=== PATIENT | male | born 1950 | race Caucasian/White ===

== ENCOUNTER 2019-08-27 17:44 | Observation (INO) ==
[2019-08-27 18:51] LABS: ABS Eosinophils 0.1 10^3/ul (0-0.6); ABS Lymphocytes 0.3 10^3/ul (1.0-4.8); ABS Monocytes 0.9 10^3/ul (0-0.8); Eosinophil % 1.6 %; Hematocrit 33 % (42-52); Hemoglobin 11.4 g/dL (14.0-18.0); Lymphocyte % 3.7 %; Mean Corpuscular HGB Conc 35 g/dL (31-36); Mean Corpuscular Hemoglobin 32 pg (27-31); Mean Corpuscular Volume 92 fL (80-94); Mean Platelet Volume 9.9 fL (7.4-10.4); Platelet Count 139 10^3/uL (150-450); Red Blood Count 3.55 10^6 /uL (4.18-5.48); Red Cell Distribution Width 19 % (10-15); White Blood Count 6.8 10^3/uL (3.5-10.8)
[2019-08-27 19:14] LABS: Albumin 4.5 g/dL (3.2-5.2); Albumin/Globulin Ratio 1.3 (1-3); BUN/Creatinine Ratio 14.8 (8-20); Calcium 10.3 mg/dL (8.6-10.3); EGFR Non-African American 17.4 (>60); Globulin 3.6 g/dL (2-4); Total Bilirubin 0.8 mg/dL (0.2-1.0); Total Protein 8.1 g/dL (6.4-8.9)
[2019-08-27 19:16] LABS: Potassium 5.7 mmol/L (3.5-5.0)
[2019-08-27] MEDS ORDERED: NS 0.9% 1000 ml BAG 1,000 ML IV ONE (20:08)
[2019-08-27 21:42] LABS: Urine Appearance Clear; Urine Bilirubin Negative (Negative); Urine Blood Negative (Negative); Urine Color Yellow; Urine Glucose Negative (Negative); Urine Ketones Negative (Negative); Urine Nitrite Negative (Negative); Urine Protein Negative (Negative); Urine Specific Gravity 1.009 (1.010-1.030); Urine Urobilinogen Negative (Negative)
[2019-08-28] LABS: Magnesium 2.7 mg/dL (1.9-2.7)
[2019-08-28 00:05] LABS: Digoxin 2.8 ng/ml (0.8-2.0)
[2019-08-28 00:43] LABS: BUN/Creatinine Ratio 15.2 (8-20); Calcium 9.7 mg/dL (8.6-10.3); EGFR African American 21.6 (>60); EGFR Non-African American 17.9 (>60); Potassium 4.9 mmol/L (3.5-5.0)
[2019-08-28 00:45] LABS: Troponin I 0.01 ng/mL (<0.03)
[2019-08-28] MEDS ORDERED: fentaNYL PATCH 100 MCG/HR 1 PATCH TRANSDERM SCH (01:00)
[2019-08-28] MEDS ORDERED: NS 0.9% 1000 ml BAG 1,000 ML IV SCH ×2 (01:15→10:30)
[2019-08-28 01:36] LABS: Urine Creatinine Concentration 56.52 mg/dL
[2019-08-28] MEDS: Pentoxifylline CR 400 mg TAB 400 MG PO SCH ×3 (03:00→20:18)
[2019-08-28] MEDS: fentaNYL Patch Check Q Shift NOTE FOLLOW UP SCH ×2 (06:51→19:29)
[2019-08-28 07:26] LABS: ABS Eosinophils 0.1 10^3/ul (0-0.6); ABS Lymphocytes 0.1 10^3/ul (1.0-4.8); ABS Monocytes 0.6 10^3/ul (0-0.8); Eosinophil % 2.8 %; Hematocrit 27 % (42-52); Hemoglobin 9.2 g/dL (14.0-18.0); Lymphocyte % 2.3 %; Mean Corpuscular HGB Conc 34 g/dL (31-36); Mean Corpuscular Hemoglobin 32 pg (27-31); Mean Corpuscular Volume 92 fL (80-94); Mean Platelet Volume 9.8 fL (7.4-10.4); Platelet Count 105 10^3/uL (150-450); Red Blood Count 2.93 10^6 /uL (4.18-5.48); Red Cell Distribution Width 19 % (10-15); White Blood Count 4.8 10^3/uL (3.5-10.8)
[2019-08-28 07:44] LABS: BUN/Creatinine Ratio 15.9 (8-20); EGFR Non-African American 20.7 (>60); Potassium 4.4 mmol/L (3.5-5.0)
[2019-08-28] MEDS ORDERED: fentaNYL PATCH 75 MCG/HR 1 PATCH TRANSDERM SCH (08:00)
[2019-08-28] MEDS ORDERED: Lenalidomide 10 mg CAP (NF) PO SCH (09:00)
[2019-08-28] MEDS: CMCS:Alfuzosin ER 10 mg TAB.ER (NF) 10 MG TAB.ER PO SCH (10:14)
[2019-08-28] MEDS: Cyanocobalamin INJ 1,000 MCG/ML VIAL 1 ML VIAL IM ONE ×2 (10:22→10:23)
[2019-08-28 11:43] LABS: Uric Acid 10.8 mg/dL (4.4-7.6)
[2019-08-29 07:10] LABS: ABS Eosinophils 0.1 10^3/ul (0-0.6); ABS Lymphocytes 0.1 10^3/ul (1.0-4.8); ABS Monocytes 0.4 10^3/ul (0-0.8); Eosinophil % 4.3 %; Hematocrit 24 % (42-52); Hemoglobin 8.5 g/dL (14.0-18.0); Lymphocyte % 3.1 %; Mean Corpuscular HGB Conc 35 g/dL (31-36); Mean Corpuscular Hemoglobin 32 pg (27-31); Mean Corpuscular Volume 92 fL (80-94); Nucleated Red Blood Cells % 0.2; Red Blood Count 2.63 10^6 /uL (4.18-5.48); Red Cell Distribution Width 19 % (10-15); White Blood Count 2.9 10^3/uL (3.5-10.8)
[2019-08-29 07:20] LABS: BUN/Creatinine Ratio 16.6 (8-20); Calcium 8.5 mg/dL (8.6-10.3); EGFR African American 34.5 (>60); EGFR Non-African American 28.5 (>60); Potassium 4.2 mmol/L (3.5-5.0)
[2019-08-29] MEDS: fentaNYL Patch Check Q Shift NOTE FOLLOW UP SCH (07:27)
[2019-08-29] MEDS: CMCS:Alfuzosin ER 10 mg TAB.ER (NF) 10 MG TAB.ER PO SCH (08:49)
[2019-08-29] MEDS: Pentoxifylline CR 400 mg TAB 400 MG PO SCH (08:49)
[2019-08-29 09:07] LABS: Mean Platelet Volume 9.2 fL (7.4-10.4); Platelet Count 113 10^3/uL (150-450)
[2019-08-29 13:43] LABS: Urine Potassium Concentration 43.1 mmol/L
[2019-08-29 18:35] VITALS: BP 94/47
[2019-08-31 13:06] LABS: Urine Kappa Total Light Chain 1.18 mg/dL (<0.9000); Urine Kappa/Lambda Light Chain >1.69
[2019-08-31 17:06] LABS: Kappa Free Light Chain 2.15 mg/dL
[2019-09-01 10:31] LABS: Albumin 2.9 g/dL (3.4-4.7); Albumin/Globulin Ratio 0.92; Gamma Globulin 1.1 g/dL (0.6-1.6); Total Protein(PEP) 6.1 g/dL (6.3 - 7.9)
[2019-09-02 13:27] LABS: Albumin 53 %; Albumin/Globulin Ratio 1.13 %; Gamma Globulin 7 %; Total Protein(PEP) Urine 10 mg/dL
== END 2019-08-29 16:55 | disposition home or self-care (01) ==
LOC: MEDTELE 17:44 → ED 17:44 → MEDTELE 08-28 01:32
PROVIDERS: ADMIT Internal Medicine; ATTEND Internal Medicine

== ENCOUNTER 2021-07-12 17:46 | Inpatient (IN) ==
[2021-07-12 19:30] LABS: ABS Basophils 0.1 10^3/ul (0-0.2); ABS Lymphocytes 0.1 10^3/ul (1.0-4.8); ABS Monocytes 0.4 10^3/ul (0-0.8); ABS Neutrophils 15.9 10^3/ul (1.5-7.7); Eosinophil % 0.1 %; Hematocrit 28 % (42-52); Hemoglobin 9.3 g/dL (14.0-18.0); Lymphocyte % 0.4 %; Mean Corpuscular HGB Conc 33 g/dL (31-36); Mean Corpuscular Hemoglobin 31 pg (27-31); Mean Corpuscular Volume 95 fL (80-94); Mean Platelet Volume 7.2 fL (7.4-10.4); Nucleated Red Blood Cells % 0.2; Platelet Count 232 10^3/uL (150-450); Red Blood Count 2.97 10^6 /uL (4.18-5.48); Red Cell Distribution Width 18 % (10-15); White Blood Count 16.4 10^3/uL (3.5-10.8)
[2021-07-12 19:53] LABS: ALT 7 U/L (7-52); AST 19 U/L (13-39); Albumin 3.9 g/dL (3.2-5.2); Albumin/Globulin Ratio 1.1 (1-3); Alkaline Phosphatase 89 U/L (35-149); Anion Gap 10 mmol/L (2-11); Blood Urea Nitrogen 39 mg/dL (6-24); CO2 Carbon Dioxide 30 mmol/L (22-32); Calcium 12.5 mg/dL (8.6-10.3); Chloride 98 mmol/L (101-111); Creatine Kinase 38 U/L (10-223); Digoxin 0.7 ng/ml (0.8-2.0); Globulin 3.6 g/dL (2-4); Glucose 90 mg/dL (70-100); High Sens Troponin Baseline 31 pg/mL (<20); Sodium 138 mmol/L (135-145); Total Protein 7.5 g/dL (6.4-8.9); eGFR CKD-EPI 31.4 (>60)
[2021-07-12] MEDS ORDERED: NS 0.9% 1000 ml BAG 1,000 ML IV SCH (20:15)
[2021-07-12 20:43] LABS: Urine Appearance Cloudy; Urine Bilirubin Negative (Negative); Urine Blood Negative (Negative); Urine Color Yellow; Urine Glucose Negative (Negative); Urine Ketones Negative (Negative); Urine Nitrite Negative (Negative); Urine Protein Negative (Negative); Urine Urobilinogen Negative (Negative)
[2021-07-12 20:46] LABS: Urine Bacteria 1+ (Absent); Urine Red Blood Cell 1+(3-5/hpf) (Absent); Urine White Blood Cell 1+(6-10/hpf) (Absent)
[2021-07-12] MEDS ORDERED: Morphine 4 MG/ML VIAL (1 ml) IV ONE (20:53)
[2021-07-12 21:01] LABS: High Sensitivity Troponin 1 Hr 38 pg/mL (<20)
[2021-07-12 23:25] LABS: C Reactive Protein < 1.00 mg/L (<8.01)
[2021-07-12] MEDS ORDERED: Acetaminophen IV 1 GM/100ML 100 ML IV PRN (23:34)
[2021-07-12] MEDS ORDERED: Cefepime ADVAN 1 GM in NS 0.9% 50 ML 50 ML IVPB SCH (23:45)
[2021-07-13] MEDS ORDERED: Cefepime 1 GM in Dextrose 1 GM/50 ML BAG IV ONE
[2021-07-13] MEDS: fentaNYL PATCH 75 MCG/HR 1 PATCH TRANSDERM SCH (03:33)
[2021-07-13 06:18] LABS: ABS Lymphocytes 0.1 10^3/ul (1.0-4.8); ABS Monocytes 0.6 10^3/ul (0-0.8); ABS Neutrophils 15.5 10^3/ul (1.5-7.7); Hematocrit 24 % (42-52); Hemoglobin 7.8 g/dL (14.0-18.0); Lymphocyte % 0.8 %; Mean Corpuscular HGB Conc 33 g/dL (31-36); Mean Corpuscular Hemoglobin 31 pg (27-31); Mean Corpuscular Volume 95 fL (80-94); Mean Platelet Volume 7.3 fL (7.4-10.4); Nucleated Red Blood Cells % 0.1; Platelet Count 200 10^3/uL (150-450); Red Cell Distribution Width 18 % (10-15); White Blood Count 16.3 10^3/uL (3.5-10.8)
[2021-07-13 06:54] LABS: Albumin 3.4 g/dL (3.2-5.2); Albumin/Globulin Ratio 1.1 (1-3); C Reactive Protein 165.75 mg/L (<8.01); Calcium 11.7 mg/dL (8.6-10.3); Globulin 3.2 g/dL (2-4); Magnesium 2.7 mg/dL (1.9-2.7); Potassium 3.7 mmol/L (3.5-5.0); Total Bilirubin 0.6 mg/dL (0.2-1.0); Total Protein 6.6 g/dL (6.4-8.9); eGFR CKD-EPI 36.3 (>60)
[2021-07-13] MEDS: fentaNYL Patch Check Q Shift NOTE FOLLOW UP SCH ×2 (07:18→18:55)
[2021-07-13 08:20] LABS: Ferritin 94.5 ng/mL (24-336)
[2021-07-13] MEDS ORDERED: NS 0.9% 1000 ml BAG 1,000 ML IV SCH ×2 (11:00)
[2021-07-13] MEDS ORDERED: Calcitonin (Salmon) INJ 200 UNITS/ML 2 ML VIAL (400 units) IM ONE (11:04)
[2021-07-13 14:52] LABS: Calcium 10.8 mg/dL (8.6-10.3); Potassium 3.7 mmol/L (3.5-5.0); eGFR CKD-EPI 45.4 (>60)
[2021-07-13] MEDS ORDERED: Benzocaine (DENTAL) 10% TOP.GEL TOPICAL PRN (17:18)
[2021-07-13] MEDS ORDERED: Lactated Ringers 1000 ml BAG 1,000 ML IV SCH (18:00)
[2021-07-13 18:48] LABS: ABS Lymphocytes 0.1 10^3/ul (1.0-4.8); ABS Monocytes 0.1 10^3/ul (0-0.8); ABS Neutrophils 10.9 10^3/ul (1.5-7.7); Eosinophil % 0.1 %; Hematocrit 22 % (42-52); Hemoglobin 7.2 g/dL (14.0-18.0); Lymphocyte % 1.1 %; Mean Corpuscular HGB Conc 33 g/dL (31-36); Mean Corpuscular Hemoglobin 32 pg (27-31); Mean Corpuscular Volume 96 fL (80-94); Mean Platelet Volume 7.1 fL (7.4-10.4); Nucleated Red Blood Cells % 0.1; Platelet Count 172 10^3/uL (150-450); Red Blood Count 2.28 10^6 /uL (4.18-5.48); Red Cell Distribution Width 19 % (10-15); White Blood Count 11.1 10^3/uL (3.5-10.8)
[2021-07-13] MEDS: Heparin 5000 UNITS/ML 1 mL VIAL SUBCUT SCH (20:24)
[2021-07-14] MEDS: Cefepime 1 GM in Dextrose 1 GM/50 ML BAG IV SCH (00:59)
[2021-07-14 05:48] LABS: ABS Lymphocytes 0.2 10^3/ul (1.0-4.8); ABS Monocytes 0.4 10^3/ul (0-0.8); Eosinophil % 0.5 %; Hematocrit 21 % (42-52); Lymphocyte % 2.3 %; Mean Corpuscular HGB Conc 34 g/dL (31-36); Mean Corpuscular Hemoglobin 32 pg (27-31); Mean Corpuscular Volume 95 fL (80-94); Mean Platelet Volume 7.2 fL (7.4-10.4); Platelet Count 174 10^3/uL (150-450); Red Blood Count 2.15 10^6 /uL (4.18-5.48); Red Cell Distribution Width 18 % (10-15); White Blood Count 7.6 10^3/uL (3.5-10.8)
[2021-07-14 06:29] LABS: ALT 6 U/L (7-52); AST 14 U/L (13-39); Alkaline Phosphatase 60 U/L (35-149); Anion Gap 7 mmol/L (2-11); Blood Urea Nitrogen 29 mg/dL (6-24); CO2 Carbon Dioxide 28 mmol/L (22-32); Calcium 10.5 mg/dL (8.6-10.3); Chloride 104 mmol/L (101-111); Globulin 2.9 g/dL (2-4); Glucose 90 mg/dL (70-100); Magnesium 2.3 mg/dL (1.9-2.7); Potassium 3.8 mmol/L (3.5-5.0); Sodium 139 mmol/L (135-145); Total Protein 5.9 g/dL (6.4-8.9); eGFR CKD-EPI 58.7 (>60)
[2021-07-14] MEDS: fentaNYL Patch Check Q Shift NOTE FOLLOW UP SCH ×2 (06:40→19:14)
[2021-07-14] MEDS: Heparin 5000 UNITS/ML 1 mL VIAL SUBCUT SCH (10:11)
[2021-07-14 10:19] LABS: C Reactive Protein 192.74 mg/L (<8.01)
[2021-07-14 13:37] LABS: Kappa Free Light Chain 1.26 mg/dL; Lambda Free Light Chain, S <0.1500 mg/dL
[2021-07-14 17:03] LABS: LDH 160 U/L (140-271)
[2021-07-14 18:51] LABS: Corrected Retic Count 1.3 % (0.5-1.5); Hematocrit for Retic CNT 21 % (42-52); Immature Retic Fraction 0.66; RBC Retic Count 2.22 10^6/uL (4.18-5.48)
[2021-07-14 19:20] LABS: PSA Screening Total < 0.008 ng/mL (0-4.000)
[2021-07-14] MEDS ORDERED: Gadoteridol (CONTRAST) 279.3 MG/ML 10 ML IV ONE (20:34)
[2021-07-14 23:28] LABS: Albumin 2.5 g/dL (3.4-4.7); Gamma Globulin 1.2 g/dL (0.6-1.6)
[2021-07-15] MEDS: Cefepime 1 GM in Dextrose 1 GM/50 ML BAG IV SCH (00:49)
[2021-07-15 05:09] LABS: ABS Eosinophils 0.1 10^3/ul (0-0.6); ABS Lymphocytes 0.1 10^3/ul (1.0-4.8); ABS Monocytes 0.3 10^3/ul (0-0.8); ABS Neutrophils 4.4 10^3/ul (1.5-7.7); Eosinophil % 1.9 %; Hematocrit 21 % (42-52); Lymphocyte % 2.5 %; Mean Corpuscular HGB Conc 33 g/dL (31-36); Mean Corpuscular Hemoglobin 31 pg (27-31); Mean Corpuscular Volume 95 fL (80-94); Mean Platelet Volume 6.9 fL (7.4-10.4); Nucleated Red Blood Cells % 0.4; Platelet Count 184 10^3/uL (150-450); Red Blood Count 2.22 10^6 /uL (4.18-5.48); Red Cell Distribution Width 18 % (10-15); White Blood Count 4.9 10^3/uL (3.5-10.8)
[2021-07-15 05:45] LABS: Potassium 3.6 mmol/L (3.5-5.0); eGFR CKD-EPI 59.3 (>60)
[2021-07-15] MEDS: fentaNYL Patch Check Q Shift NOTE FOLLOW UP SCH ×2 (07:22→19:02)
[2021-07-15] MEDS: NS 0.9% 1000 ml BAG 1,000 ML IV SCH (16:59)
[2021-07-15] MEDS: Dexamethasone IV 4 MG/ML VIAL 1 ml VIAL IV SLOW PU SCH (17:32)
[2021-07-15] MEDS: Dexamethasone IV 40 MG in NS 0.9% 50 ML 50 ML IVPB SCH (19:56)
[2021-07-15] MEDS: Heparin 5000 UNITS/ML 1 mL VIAL SUBCUT SCH (21:24)
[2021-07-16] MEDS: cefTRIAXone 1 gm/50 mL D5W 1 GM/50 ML BAG IV SCH ×2 (00:58→23:23)
[2021-07-16] MEDS: NS 0.9% 1000 ml BAG 1,000 ML IV SCH ×3 (02:17→19:01)
[2021-07-16] MEDS: fentaNYL PATCH 75 MCG/HR 1 PATCH TRANSDERM SCH (03:20)
[2021-07-16] MEDS: Heparin 5000 UNITS/ML 1 mL VIAL SUBCUT SCH ×3 (05:36→20:01)
[2021-07-16 06:26] LABS: Hematocrit 21 % (42-52); Hemoglobin 7.1 g/dL (14.0-18.0); Mean Corpuscular HGB Conc 34 g/dL (31-36); Mean Corpuscular Hemoglobin 32 pg (27-31); Mean Corpuscular Volume 96 fL (80-94); Mean Platelet Volume 7.7 fL (7.4-10.4); Platelet Count 207 10^3/uL (150-450); Red Blood Count 2.19 10^6 /uL (4.18-5.48); Red Cell Distribution Width 18 % (10-15); White Blood Count 6.2 10^3/uL (3.5-10.8)
[2021-07-16 06:27] LABS: ABS Lymphocytes 0.1 10^3/ul (1.0-4.8); ABS Monocytes 0.2 10^3/ul (0-0.8); ABS Neutrophils 5.9 10^3/ul (1.5-7.7); Eosinophil % 0.3 %; Lymphocyte % 1.9 %; Nucleated Red Blood Cells % 0.1
[2021-07-16 06:59] LABS: Calcium 11.5 mg/dL (8.6-10.3); eGFR CKD-EPI 69.5 (>60)
[2021-07-16] MEDS: fentaNYL Patch Check Q Shift NOTE FOLLOW UP SCH ×2 (07:00→18:54)
[2021-07-16] MEDS ORDERED: cefTRIAXone 1 gm/50 mL D5W 1 GM/50 ML BAG IV SCH (09:00)
[2021-07-16] MEDS: Dexamethasone IV 4 MG/ML VIAL 1 ml VIAL IV SLOW PU SCH (10:00)
[2021-07-16] MEDS: Dexamethasone IV 40 MG in NS 0.9% 50 ML 50 ML IVPB SCH (10:10)
[2021-07-16] MEDS ORDERED: Calcitonin (Salmon) INJ 200 UNITS/ML 2 ML VIAL (400 units) IM ONE (11:11)
[2021-07-17 04:54] LABS: ABS Lymphocytes 0.1 10^3/ul (1.0-4.8); ABS Monocytes 0.4 10^3/ul (0-0.8); ABS Neutrophils 10.2 10^3/ul (1.5-7.7); Hematocrit 21 % (42-52); Hemoglobin 6.9 g/dL (14.0-18.0); Lymphocyte % 1.2 %; Mean Corpuscular HGB Conc 34 g/dL (31-36); Mean Corpuscular Hemoglobin 32 pg (27-31); Mean Corpuscular Volume 96 fL (80-94); Mean Platelet Volume 7.8 fL (7.4-10.4); Nucleated Red Blood Cells % 0.1; Platelet Count 203 10^3/uL (150-450); Red Blood Count 2.15 10^6 /uL (4.18-5.48); Red Cell Distribution Width 18 % (10-15); White Blood Count 10.8 10^3/uL (3.5-10.8)
[2021-07-17 05:37] LABS: Calcium 9.7 mg/dL (8.6-10.3); Potassium 3.7 mmol/L (3.5-5.0); eGFR CKD-EPI 90.1 (>60)
[2021-07-17] MEDS: Heparin 5000 UNITS/ML 1 mL VIAL SUBCUT SCH ×3 (05:45→21:37)
[2021-07-17] MEDS ORDERED: Lactated Ringers 1000 ml BAG 1,000 ML IV ONE (06:58)
[2021-07-17] MEDS: fentaNYL Patch Check Q Shift NOTE FOLLOW UP SCH ×2 (07:14→18:52)
[2021-07-17] MEDS: Dexamethasone IV 40 MG in NS 0.9% 50 ML 50 ML IVPB SCH (07:40)
[2021-07-17] MEDS ORDERED: Pneumococcal Vac 23-Polyvalent IM ONE (09:00)
[2021-07-17] MEDS ORDERED: Potassium Chloride LIQUID 20 MEQ/15 ML LIQUID PO ONE (09:00)
[2021-07-17] MEDS ORDERED: Potassium Chloride LIQUID 20 MEQ/15 ML LIQUID PO SCH (09:00)
[2021-07-17 14:07] LABS: Immunoglobulin A 2 mg/dL (61 - 356); Immunoglobulin G 1490 mg/dL (767 - 1590); Immunoglobulin M <5 mg/dL (37 - 286)
[2021-07-17 19:55] LABS: Hematocrit 23 % (42-52); Hemoglobin 7.7 g/dL (14.0-18.0); Mean Corpuscular HGB Conc 33 g/dL (31-36); Mean Corpuscular Hemoglobin 32 pg (27-31); Mean Corpuscular Volume 95 fL (80-94); Mean Platelet Volume 7.5 fL (7.4-10.4); Platelet Count 201 10^3/uL (150-450); Red Blood Count 2.44 10^6 /uL (4.18-5.48); Red Cell Distribution Width 18 % (10-15); White Blood Count 10.3 10^3/uL (3.5-10.8)
[2021-07-18] MEDS: cefTRIAXone 1 gm/50 mL D5W 1 GM/50 ML BAG IV SCH (00:07)
[2021-07-18] MEDS: Heparin 5000 UNITS/ML 1 mL VIAL SUBCUT SCH ×2 (06:02→14:28)
[2021-07-18 06:28] LABS: ABS Lymphocytes 0.2 10^3/ul (1.0-4.8); ABS Monocytes 0.4 10^3/ul (0-0.8); ABS Neutrophils 7.6 10^3/ul (1.5-7.7); Hematocrit 23 % (42-52); Hemoglobin 7.7 g/dL (14.0-18.0); Mean Corpuscular HGB Conc 34 g/dL (31-36); Mean Corpuscular Hemoglobin 32 pg (27-31); Mean Corpuscular Volume 93 fL (80-94); Mean Platelet Volume 7.4 fL (7.4-10.4); Nucleated Red Blood Cells % 0.1; Platelet Count 193 10^3/uL (150-450); Red Blood Count 2.43 10^6 /uL (4.18-5.48); Red Cell Distribution Width 18 % (10-15); White Blood Count 8.2 10^3/uL (3.5-10.8)
[2021-07-18 07:02] LABS: Calcium 9.3 mg/dL (8.6-10.3); Potassium 3.6 mmol/L (3.5-5.0)
[2021-07-18] MEDS ORDERED: Dexamethasone IV 4 MG/ML 5 ML VIAL (20 MG) ONE (08:20)
[2021-07-18] MEDS: Dexamethasone IV 40 MG in NS 0.9% 50 ML 50 ML IVPB SCH (08:28)
[2021-07-18] MEDS: fentaNYL Patch Check Q Shift NOTE FOLLOW UP SCH ×2 (08:47→19:20)
[2021-07-18 14:49] LABS: Magnesium 1.9 mg/dL (1.9-2.7)
[2021-07-18] MEDS: Enoxaparin 40 MG/0.4 ML SYR SUBCUT SCH (20:53)
[2021-07-19] MEDS: fentaNYL PATCH 75 MCG/HR 1 PATCH TRANSDERM SCH (03:15)
[2021-07-19 05:49] LABS: ABS Lymphocytes 0.1 10^3/ul (1.0-4.8); ABS Monocytes 0.4 10^3/ul (0-0.8); ABS Neutrophils 5.5 10^3/ul (1.5-7.7); Hematocrit 24 % (42-52); Hemoglobin 8.1 g/dL (14.0-18.0); Lymphocyte % 2.2 %; Mean Corpuscular HGB Conc 34 g/dL (31-36); Mean Corpuscular Hemoglobin 32 pg (27-31); Mean Corpuscular Volume 94 fL (80-94); Mean Platelet Volume 8.4 fL (7.4-10.4); Nucleated Red Blood Cells % 0.4; Platelet Count 203 10^3/uL (150-450); Red Blood Count 2.55 10^6 /uL (4.18-5.48); Red Cell Distribution Width 18 % (10-15); White Blood Count 6.1 10^3/uL (3.5-10.8)
[2021-07-19 05:57] LABS: Calcium 9.2 mg/dL (8.6-10.3); Potassium 3.7 mmol/L (3.5-5.0)
[2021-07-19] MEDS: fentaNYL Patch Check Q Shift NOTE FOLLOW UP SCH ×2 (07:14→19:30)
[2021-07-19] MEDS: Polyethylene Glycol 3350 17 GM PACKET PO SCH (10:12)
[2021-07-19] MEDS: Ferric Gluconate IV 125 MG in NS 0.9% 100 ml BAG 100 ML IVPB SCH (10:12)
[2021-07-19] MEDS: Enoxaparin 40 MG/0.4 ML SYR SUBCUT SCH (20:40)
[2021-07-19] MEDS: Senna TAB 8.6 mg TAB PO SCH (20:43)
[2021-07-20] MEDS ORDERED: fentaNYL PATCH 75 MCG/HR 1 PATCH TRANSDERM SCH (05:00)
[2021-07-20 06:49] LABS: Hematocrit 25 % (42-52); Hemoglobin 8.4 g/dL (14.0-18.0); Mean Corpuscular HGB Conc 34 g/dL (31-36); Mean Corpuscular Hemoglobin 32 pg (27-31); Mean Corpuscular Volume 94 fL (80-94); Mean Platelet Volume 7.7 fL (7.4-10.4); Platelet Count 209 10^3/uL (150-450); Red Blood Count 2.61 10^6 /uL (4.18-5.48); Red Cell Distribution Width 18 % (10-15); White Blood Count 4.3 10^3/uL (3.5-10.8)
[2021-07-20] MEDS: fentaNYL Patch Check Q Shift NOTE FOLLOW UP SCH ×2 (07:03→19:00)
[2021-07-20 07:12] LABS: Calcium 9.1 mg/dL (8.6-10.3); Magnesium 1.6 mg/dL (1.9-2.7); Phosphorus 3.2 mg/dL (2.5-5.0); Potassium 4.1 mmol/L (3.5-5.0); eGFR CKD-EPI 95.3 (>60)
[2021-07-20] MEDS ORDERED: Polyethylene Glycol 3350 17 GM PACKET PO SCH (08:00)
[2021-07-20] MEDS: Polyethylene Glycol 3350 17 GM PACKET PO SCH ×2 (08:28→22:55)
[2021-07-20] MEDS ORDERED: fentaNYL PATCH 100 MCG/HR 1 PATCH TRANSDERM SCH (09:00)
[2021-07-20] MEDS ORDERED: Magnesium Sulfate 2 gm BAG 2 GM/50 ML BAG IV ONE (09:30)
[2021-07-20] MEDS ORDERED: Magnesium Sulfate 1 GM IV 1 GM/100 ML BAG IV ONE (11:00)
[2021-07-20] MEDS: Ferric Gluconate IV 125 MG in NS 0.9% 100 ml BAG 100 ML IVPB SCH (16:58)
[2021-07-20] MEDS: Enoxaparin 40 MG/0.4 ML SYR SUBCUT SCH ×2 (21:17→21:24)
[2021-07-20] MEDS: Senna TAB 8.6 mg TAB PO SCH (21:19)
[2021-07-21 07:15] LABS: Calcium 9.8 mg/dL (8.6-10.3); Potassium 4.4 mmol/L (3.5-5.0); eGFR CKD-EPI 90.1 (>60)
[2021-07-21] MEDS: fentaNYL Patch Check Q Shift NOTE FOLLOW UP SCH (07:17)
[2021-07-21] MEDS: Polyethylene Glycol 3350 17 GM PACKET PO SCH (10:07)
[2021-07-21] MEDS: Ferric Gluconate IV 125 MG in NS 0.9% 100 ml BAG 100 ML IVPB SCH (10:08)
[2021-07-21 12:30] VITALS: BP 110/60
[2021-07-21] MEDS ORDERED: Pentoxifylline CR 400 mg TAB 400 MG PO SCH (21:00)
[2021-07-25] MEDS ORDERED: Palonosetron 0.25 MG in NS 0.9% 50 ML 50 ML IVPB ONE (10:12)
[2021-07-25] MEDS ORDERED: NS 0.9% 1000 ml BAG 1,000 ML IV SCH (10:15)
[2021-07-25] MEDS ORDERED: Dexamethasone IV 40 MG in NS 0.9% 50 ML 50 ML IVPB SCH (11:00)
== END 2021-07-21 11:44 | disposition swing bed (61) | DRG 871 ==
LOC: ED 17:46 → SUATTDRO 22:54 → EDHOLD 22:54 → MED 07-13 02:54 → UNDODISIN 07-21 11:44
PROVIDERS: ADMIT Hospitalist; ATTEND Internal Medicine

== ENCOUNTER 2021-07-21 14:26 | Inpatient (IN) ==
[2021-07-21] MEDS: fentaNYL PATCH 100 MCG/HR 1 PATCH TRANSDERM SCH (16:01)
[2021-07-21] MEDS: Benzocaine (DENTAL) 10% TOP.GEL TOPICAL PRN (18:04)
[2021-07-21] MEDS: fentaNYL Patch Check Q Shift NOTE FOLLOW UP SCH (18:57)
[2021-07-21] MEDS ORDERED: [UNRECOGNIZED DRUG - REMARK] FOLLOW UP SCH (19:00)
[2021-07-21] MEDS: Polyethylene Glycol 3350 17 GM PACKET PO SCH (21:12)
[2021-07-21] MEDS: Enoxaparin 40 MG/0.4 ML SYR SUBCUT SCH (21:13)
[2021-07-21] MEDS: Senna TAB 8.6 mg TAB PO SCH (21:15)
[2021-07-21] MEDS: Pentoxifylline CR 400 mg TAB 400 MG PO SCH (21:15)
[2021-07-22] MEDS: fentaNYL Patch Check Q Shift NOTE FOLLOW UP SCH ×2 (07:23→19:18)
[2021-07-22] MEDS: Polyethylene Glycol 3350 17 GM PACKET PO SCH ×2 (09:40→22:23)
[2021-07-22] MEDS: Cholecalciferol (VIT D3) 1,000 unit TAB PO SCH (09:44)
[2021-07-22] MEDS: Pentoxifylline CR 400 mg TAB 400 MG PO SCH ×2 (09:45→22:23)
[2021-07-22] MEDS: Enoxaparin 40 MG/0.4 ML SYR SUBCUT SCH (22:21)
[2021-07-22] MEDS: Senna TAB 8.6 mg TAB PO SCH (22:23)
[2021-07-23] MEDS: fentaNYL Patch Check Q Shift NOTE FOLLOW UP SCH ×2 (07:25→21:57)
[2021-07-23] MEDS: fentaNYL PATCH 100 MCG/HR 1 PATCH TRANSDERM SCH (09:24)
[2021-07-23] MEDS: Cholecalciferol (VIT D3) 1,000 unit TAB PO SCH (09:28)
[2021-07-23] MEDS: Polyethylene Glycol 3350 17 GM PACKET PO SCH ×2 (09:28→19:19)
[2021-07-23] MEDS: Pentoxifylline CR 400 mg TAB 400 MG PO SCH ×2 (09:36→19:19)
[2021-07-23] MEDS: Senna TAB 8.6 mg TAB PO SCH ×2 (19:19→19:21)
[2021-07-23] MEDS: Enoxaparin 40 MG/0.4 ML SYR SUBCUT SCH (19:23)
[2021-07-23] MEDS: Benzocaine (DENTAL) 10% TOP.GEL TOPICAL PRN (22:49)
[2021-07-24] MEDS: fentaNYL Patch Check Q Shift NOTE FOLLOW UP SCH ×2 (07:19→19:05)
[2021-07-24] MEDS: Cholecalciferol (VIT D3) 1,000 unit TAB PO SCH (09:32)
[2021-07-24] MEDS: Polyethylene Glycol 3350 17 GM PACKET PO SCH ×2 (09:33→21:04)
[2021-07-24] MEDS: Pentoxifylline CR 400 mg TAB 400 MG PO SCH ×2 (09:33→21:06)
[2021-07-24 17:33] LABS: ABS Lymphocytes 0.2 10^3/ul (1.0-4.8); ABS Monocytes 0.4 10^3/ul (0-0.8); ABS Neutrophils 11.5 10^3/ul (1.5-7.7); Eosinophil % 0.2 %; Hematocrit 30 % (42-52); Hemoglobin 9.9 g/dL (14.0-18.0); Lymphocyte % 1.3 %; Mean Corpuscular HGB Conc 33 g/dL (31-36); Mean Corpuscular Hemoglobin 32 pg (27-31); Mean Corpuscular Volume 96 fL (80-94); Nucleated Red Blood Cells % 0.2; Platelet Count 308 10^3/uL (150-450); Red Blood Count 3.11 10^6 /uL (4.18-5.48); Red Cell Distribution Width 19 % (10-15); White Blood Count 12.1 10^3/uL (3.5-10.8)
[2021-07-24] MEDS ORDERED: NS 0.9% 1000 ml BAG 1,000 ML IV SCH (17:45)
[2021-07-24 18:10] LABS: ALT 41 U/L (7-52); AST 21 U/L (13-39); Albumin 3.6 g/dL (3.2-5.2); Albumin/Globulin Ratio 0.9 (1-3); Alkaline Phosphatase 73 U/L (35-149); Anion Gap 8 mmol/L (2-11); Blood Urea Nitrogen 33 mg/dL (6-24); CO2 Carbon Dioxide 36 mmol/L (22-32); Chloride 92 mmol/L (101-111); Globulin 3.9 g/dL (2-4); Glucose 106 mg/dL (70-100); Potassium 3.8 mmol/L (3.5-5.0); Sodium 136 mmol/L (135-145); Total Protein 7.5 g/dL (6.4-8.9); eGFR CKD-EPI 43.8 (>60)
[2021-07-24] MEDS ORDERED: Calcitonin (Salmon) INJ 200 UNITS/ML 2 ML VIAL (400 units) IM ONE (18:30)
[2021-07-24] MEDS: Senna TAB 8.6 mg TAB PO SCH (21:07)
[2021-07-24] MEDS: Enoxaparin 40 MG/0.4 ML SYR SUBCUT SCH (21:08)
[2021-07-24] MEDS: NS 0.9% 1000 ml BAG 1,000 ML IV SCH (22:46)
[2021-07-25] MEDS: NS 0.9% 1000 ml BAG 1,000 ML IV SCH (02:06)
[2021-07-25 04:21] LABS: Potassium 3.6 mmol/L (3.5-5.0); eGFR CKD-EPI 51.9 (>60)
[2021-07-25 04:27] LABS: Calcium 14.7 mg/dL (8.6-10.3)
[2021-07-25] MEDS ORDERED: Calcitonin (Salmon) INJ 200 UNITS/ML 2 ML VIAL (400 units) IM ONE ×2 (07:15→07:48)
[2021-07-25] MEDS ORDERED: NS 0.9% 1000 ml BAG 1,000 ML IV SCH (07:30)
[2021-07-25] MEDS: fentaNYL Patch Check Q Shift NOTE FOLLOW UP SCH (08:14)
[2021-07-25 08:20] VITALS: BP 105/45
[2021-07-25] MEDS: Pentoxifylline CR 400 mg TAB 400 MG PO SCH (09:27)
[2021-07-25] MEDS: Polyethylene Glycol 3350 17 GM PACKET PO SCH (09:43)
== END 2021-07-25 09:15 | disposition short-term general hospital (02) | DRG 542 ==
LOC: SUATTDRO 14:26 → MED 14:26
PROVIDERS: ADMIT Hospitalist; ATTEND Internal Medicine

== ENCOUNTER 2021-08-01 07:14 | Inpatient (IN) ==
[2021-08-01] MEDS ORDERED: Magnesium Hydroxide LIQ 30 ML UDC PO PRN (16:43)
[2021-08-01] MEDS: fentaNYL Patch Check Q Shift NOTE FOLLOW UP SCH (19:29)
[2021-08-01] MEDS: Benzocaine (DENTAL) 10% TOP.GEL TOPICAL SCH (22:02)
[2021-08-01] MEDS: Senna TAB 8.6 mg TAB PO SCH (22:03)
[2021-08-01] MEDS: Pentoxifylline CR 400 mg TAB 400 MG PO SCH (22:05)
[2021-08-01] MEDS: Polyethylene Glycol 3350 17 GM PACKET PO SCH (22:10)
[2021-08-01] MEDS: Enoxaparin 40 MG/0.4 ML SYR SUBCUT SCH (22:10)
[2021-08-02 06:48] LABS: Hematocrit 24 % (42-52); Hemoglobin 8.1 g/dL (14.0-18.0); Mean Corpuscular HGB Conc 34 g/dL (31-36); Mean Corpuscular Hemoglobin 32 pg (27-31); Mean Corpuscular Volume 94 fL (80-94); Mean Platelet Volume 8.4 fL (7.4-10.4); Platelet Count 109 10^3/uL (150-450); Red Blood Count 2.51 10^6 /uL (4.18-5.48); Red Cell Distribution Width 18 % (10-15); White Blood Count 1.1 10^3/uL (3.5-10.8)
[2021-08-02] MEDS: fentaNYL Patch Check Q Shift NOTE FOLLOW UP SCH ×2 (07:03→22:00)
[2021-08-02 07:05] LABS: ABS Monocytes 0.1 10^3/ul (0-0.8); ABS Neutrophils 0.9 10^3/ul (1.5-7.7); Eosinophil % 3.8 %; Nucleated Red Blood Cells % 0.8
[2021-08-02 07:24] LABS: Albumin 2.7 g/dL (3.2-5.2); Albumin/Globulin Ratio 0.9 (1-3); Calcium 9.4 mg/dL (8.6-10.3); Potassium 4.1 mmol/L (3.5-5.0); Total Bilirubin 0.4 mg/dL (0.2-1.0); Total Protein 5.7 g/dL (6.4-8.9); eGFR CKD-EPI 75.9 (>60)
[2021-08-02] MEDS: Polyethylene Glycol 3350 17 GM PACKET PO SCH ×2 (09:08→21:48)
[2021-08-02] MEDS: Pentoxifylline CR 400 mg TAB 400 MG PO SCH ×2 (09:10→21:48)
[2021-08-02] MEDS: Benzocaine (DENTAL) 10% TOP.GEL TOPICAL SCH ×2 (09:14→21:46)
[2021-08-02] MEDS: Enoxaparin 40 MG/0.4 ML SYR SUBCUT SCH (21:47)
[2021-08-02] MEDS: Senna TAB 8.6 mg TAB PO SCH (21:52)
[2021-08-03] MEDS: fentaNYL Patch Check Q Shift NOTE FOLLOW UP SCH ×2 (07:21→19:38)
[2021-08-03] MEDS: Polyethylene Glycol 3350 17 GM PACKET PO SCH ×2 (08:47→20:55)
[2021-08-03] MEDS: Benzocaine (DENTAL) 10% TOP.GEL TOPICAL SCH ×2 (09:06→20:57)
[2021-08-03] MEDS: Pentoxifylline CR 400 mg TAB 400 MG PO SCH ×2 (09:08→20:56)
[2021-08-03] MEDS ORDERED: Al Hydrox/Mg Hydrox/Simet LIQ 30 ML UDC PO PRN (20:30)
[2021-08-03] MEDS: Senna TAB 8.6 mg TAB PO SCH (20:53)
[2021-08-03] MEDS: Enoxaparin 40 MG/0.4 ML SYR SUBCUT SCH (20:56)
[2021-08-04 07:20] LABS: ABS Monocytes 0.1 10^3/ul (0-0.8); ABS Neutrophils 0.5 10^3/ul (1.5-7.7); Eosinophil % 6.5 %; Hematocrit 25 % (42-52); Hemoglobin 8.5 g/dL (14.0-18.0); Lymphocyte % 5.7 %; Mean Corpuscular HGB Conc 33 g/dL (31-36); Mean Corpuscular Hemoglobin 32 pg (27-31); Mean Corpuscular Volume 95 fL (80-94); Mean Platelet Volume 8.1 fL (7.4-10.4); Nucleated Red Blood Cells % 0.3; Platelet Count 132 10^3/uL (150-450); Red Blood Count 2.67 10^6 /uL (4.18-5.48); Red Cell Distribution Width 19 % (10-15); White Blood Count 0.7 10^3/uL (3.5-10.8)
[2021-08-04] MEDS: fentaNYL Patch Check Q Shift NOTE FOLLOW UP SCH ×2 (07:21→21:09)
[2021-08-04] MEDS: Polyethylene Glycol 3350 17 GM PACKET PO SCH ×2 (08:27→21:00)
[2021-08-04] MEDS: Pentoxifylline CR 400 mg TAB 400 MG PO SCH ×2 (08:30→20:58)
[2021-08-04] MEDS: Benzocaine (DENTAL) 10% TOP.GEL TOPICAL SCH ×3 (08:31→21:06)
[2021-08-04] MEDS: fentaNYL PATCH 100 MCG/HR 1 PATCH TRANSDERM SCH (08:37)
[2021-08-04] MEDS: Enoxaparin 40 MG/0.4 ML SYR SUBCUT SCH (20:59)
[2021-08-04] MEDS: Senna TAB 8.6 mg TAB PO SCH (21:00)
[2021-08-05] MEDS: fentaNYL Patch Check Q Shift NOTE FOLLOW UP SCH ×2 (07:18→19:33)
[2021-08-05] MEDS: Polyethylene Glycol 3350 17 GM PACKET PO SCH ×2 (08:11→21:37)
[2021-08-05] MEDS: Pentoxifylline CR 400 mg TAB 400 MG PO SCH ×2 (08:15→21:49)
[2021-08-05] MEDS: Benzocaine (DENTAL) 10% TOP.GEL TOPICAL SCH ×2 (09:56→21:39)
[2021-08-05] MEDS: Senna TAB 8.6 mg TAB PO SCH (21:37)
[2021-08-05] MEDS: Enoxaparin 40 MG/0.4 ML SYR SUBCUT SCH (21:54)
[2021-08-06] MEDS: fentaNYL Patch Check Q Shift NOTE FOLLOW UP SCH ×2 (07:08→19:44)
[2021-08-06] MEDS: Pentoxifylline CR 400 mg TAB 400 MG PO SCH ×2 (08:45→21:47)
[2021-08-06] MEDS: Polyethylene Glycol 3350 17 GM PACKET PO SCH ×2 (08:48→21:43)
[2021-08-06] MEDS: Benzocaine (DENTAL) 10% TOP.GEL TOPICAL SCH ×3 (08:48→21:42)
[2021-08-06] MEDS: Senna TAB 8.6 mg TAB PO SCH (21:51)
[2021-08-06] MEDS: Enoxaparin 40 MG/0.4 ML SYR SUBCUT SCH (21:59)
[2021-08-07] MEDS: fentaNYL Patch Check Q Shift NOTE FOLLOW UP SCH ×2 (07:22→21:57)
[2021-08-07] MEDS: Pentoxifylline CR 400 mg TAB 400 MG PO SCH ×2 (08:49→21:58)
[2021-08-07] MEDS: Polyethylene Glycol 3350 17 GM PACKET PO SCH ×2 (08:50→21:59)
[2021-08-07] MEDS: fentaNYL PATCH 100 MCG/HR 1 PATCH TRANSDERM SCH (08:50)
[2021-08-07] MEDS: Benzocaine (DENTAL) 10% TOP.GEL TOPICAL SCH ×3 (08:56→22:00)
[2021-08-07 09:25] LABS: Hematocrit 27 % (42-52); Mean Corpuscular HGB Conc 33 g/dL (31-36); Mean Corpuscular Hemoglobin 32 pg (27-31); Mean Corpuscular Volume 96 fL (80-94); Mean Platelet Volume 7.9 fL (7.4-10.4); Platelet Count 188 10^3/uL (150-450); Red Blood Count 2.85 10^6 /uL (4.18-5.48); Red Cell Distribution Width 19 % (10-15); White Blood Count 2.1 10^3/uL (3.5-10.8)
[2021-08-07 10:46] LABS: Anisocytosis 1+; Polychromasia 1+
[2021-08-07 10:47] LABS: ABS Lymphocytes 0.1 10^3/ul (1.0-4.8); ABS Monocytes 0.2 10^3/ul (0-0.8); ABS Neutrophils 1.8 10^3/ul (1.5-7.7); Eosinophil % 1.5 %; Lymphocyte % 2.9 %; Nucleated Red Blood Cells % 0.3
[2021-08-07] MEDS: Senna TAB 8.6 mg TAB PO SCH (21:56)
[2021-08-07] MEDS: Enoxaparin 40 MG/0.4 ML SYR SUBCUT SCH (21:59)
[2021-08-08] MEDS: fentaNYL Patch Check Q Shift NOTE FOLLOW UP SCH ×2 (07:26→20:21)
[2021-08-08] MEDS: Pentoxifylline CR 400 mg TAB 400 MG PO SCH ×2 (11:14→21:54)
[2021-08-08] MEDS: Polyethylene Glycol 3350 17 GM PACKET PO SCH ×2 (11:17→22:04)
[2021-08-08] MEDS: Benzocaine (DENTAL) 10% TOP.GEL TOPICAL SCH ×2 (11:18→22:04)
[2021-08-08 13:22] LABS: Albumin 3.4 g/dL (3.2-5.2); CO2 Carbon Dioxide 32 mmol/L (22-32); Chloride 88 mmol/L (101-111); Sodium 128 mmol/L (135-145)
[2021-08-08 13:28] LABS: ALT 13 U/L (7-52); Albumin/Globulin Ratio 0.9 (1-3); Alkaline Phosphatase 71 U/L (35-149); Blood Urea Nitrogen 50 mg/dL (6-24); Globulin 3.8 g/dL (2-4); Glucose 118 mg/dL (70-100); Total Protein 7.2 g/dL (6.4-8.9); eGFR CKD-EPI 39.7 (>60)
[2021-08-08 13:34] LABS: Anion Gap 8 mmol/L (2-11); Calcium 13.2 mg/dL (8.6-10.3)
[2021-08-08] MEDS ORDERED: Zoledronic Acid 4 MG in NS 0.9% 100 ml BAG 100 ML IVPB ONE (14:03)
[2021-08-08 14:40] LABS: Potassium Redraw 3.7 mmol/L (3.5-5.0)
[2021-08-08] MEDS: NS 0.9% 1000 ml BAG 1,000 ML IV SCH (19:24)
[2021-08-08] MEDS: Senna TAB 8.6 mg TAB PO SCH (21:55)
[2021-08-08] MEDS: Enoxaparin 40 MG/0.4 ML SYR SUBCUT SCH (21:56)
[2021-08-09 04:26] LABS: Hematocrit 23 % (42-52); Hemoglobin 7.5 g/dL (14.0-18.0); Mean Corpuscular HGB Conc 33 g/dL (31-36); Mean Corpuscular Hemoglobin 32 pg (27-31); Mean Corpuscular Volume 95 fL (80-94); Mean Platelet Volume 7.6 fL (7.4-10.4); Platelet Count 175 10^3/uL (150-450); Red Blood Count 2.38 10^6 /uL (4.18-5.48); Red Cell Distribution Width 20 % (10-15)
[2021-08-09 04:51] LABS: Albumin 2.8 g/dL (3.2-5.2)
[2021-08-09 04:54] LABS: Calcium 12.3 mg/dL (8.6-10.3); Total Bilirubin 0.2 mg/dL (0.2-1.0)
[2021-08-09 04:57] LABS: Albumin/Globulin Ratio 0.9 (1-3); Globulin 3.2 g/dL (2-4)
[2021-08-09 05:51] LABS: eGFR CKD-EPI 41.4 (>60)
[2021-08-09 07:05] LABS: ABS Lymphocytes 0.1 10^3/ul (1.0-4.8); ABS Monocytes 0.3 10^3/ul (0-0.8); ABS Neutrophils 2.6 10^3/ul (1.5-7.7); Eosinophil % 1.2 %; Lymphocyte % 2.4 %; Nucleated Red Blood Cells % 0.7
[2021-08-09] MEDS: Pentoxifylline CR 400 mg TAB 400 MG PO SCH ×2 (09:44→20:23)
[2021-08-09] MEDS: Polyethylene Glycol 3350 17 GM PACKET PO SCH ×2 (09:47→20:24)
[2021-08-09] MEDS: Benzocaine (DENTAL) 10% TOP.GEL TOPICAL SCH ×2 (09:54→20:24)
[2021-08-09] MEDS: fentaNYL Patch Check Q Shift NOTE FOLLOW UP SCH ×3 (10:15→21:14)
[2021-08-09] MEDS: NS 0.9% 1000 ml BAG 1,000 ML IV SCH (18:37)
[2021-08-09] MEDS: Enoxaparin 40 MG/0.4 ML SYR SUBCUT SCH (20:13)
[2021-08-09] MEDS: Calcitonin (Salmon) INJ 200 UNITS/ML 2 ML VIAL (400 units) SUBCUT SCH (20:15)
[2021-08-09] MEDS: Senna TAB 8.6 mg TAB PO SCH (20:23)
[2021-08-10] MEDS: NS 0.9% 1000 ml BAG 1,000 ML IV SCH ×4 (01:02→22:28)
[2021-08-10 04:22] LABS: Hematocrit 22 % (42-52); Hemoglobin 7.3 g/dL (14.0-18.0); Mean Corpuscular HGB Conc 33 g/dL (31-36); Mean Corpuscular Hemoglobin 32 pg (27-31); Mean Corpuscular Volume 95 fL (80-94); Mean Platelet Volume 7.6 fL (7.4-10.4); Platelet Count 177 10^3/uL (150-450); Red Blood Count 2.32 10^6 /uL (4.18-5.48); Red Cell Distribution Width 19 % (10-15); White Blood Count 3.5 10^3/uL (3.5-10.8)
[2021-08-10 04:23] LABS: ABS Lymphocytes 0.1 10^3/ul (1.0-4.8); ABS Monocytes 0.3 10^3/ul (0-0.8); ABS Neutrophils 3.1 10^3/ul (1.5-7.7); Eosinophil % 0.9 %; Lymphocyte % 2.3 %; Nucleated Red Blood Cells % 0.3
[2021-08-10 05:29] LABS: Calcium 10.6 mg/dL (8.6-10.3); Potassium 3.5 mmol/L (3.5-5.0); eGFR CKD-EPI 50.3 (>60)
[2021-08-10] MEDS: fentaNYL Patch Check Q Shift NOTE FOLLOW UP SCH ×2 (07:20→17:59)
[2021-08-10 07:43] LABS: Microcytosis 2+; Polychromasia 1+
[2021-08-10 07:45] LABS: Anisocytosis 1+
[2021-08-10] MEDS: Polyethylene Glycol 3350 17 GM PACKET PO SCH ×2 (10:49→20:30)
[2021-08-10] MEDS: Benzocaine (DENTAL) 10% TOP.GEL TOPICAL SCH ×2 (10:50→20:30)
[2021-08-10] MEDS: Pentoxifylline CR 400 mg TAB 400 MG PO SCH ×2 (11:08→20:11)
[2021-08-10] MEDS: fentaNYL PATCH 100 MCG/HR 1 PATCH TRANSDERM SCH (11:18)
[2021-08-10] MEDS: Calcitonin (Salmon) INJ 200 UNITS/ML 2 ML VIAL (400 units) SUBCUT SCH (11:26)
[2021-08-10] MEDS: Enoxaparin 40 MG/0.4 ML SYR SUBCUT SCH (20:19)
[2021-08-10] MEDS: Senna TAB 8.6 mg TAB PO SCH (20:30)
[2021-08-11] MEDS: NS 0.9% 1000 ml BAG 1,000 ML IV SCH ×2 (05:20→13:08)
[2021-08-11 05:42] LABS: Hematocrit 21 % (42-52); Hemoglobin 6.9 g/dL (14.0-18.0); Mean Corpuscular HGB Conc 33 g/dL (31-36); Mean Corpuscular Hemoglobin 32 pg (27-31); Mean Corpuscular Volume 95 fL (80-94); Mean Platelet Volume 7.3 fL (7.4-10.4); Platelet Count 155 10^3/uL (150-450); Red Blood Count 2.18 10^6 /uL (4.18-5.48); Red Cell Distribution Width 19 % (10-15); White Blood Count 3.5 10^3/uL (3.5-10.8)
[2021-08-11 05:45] LABS: ABS Lymphocytes 0.1 10^3/ul (1.0-4.8); ABS Monocytes 0.3 10^3/ul (0-0.8); ABS Neutrophils 3.1 10^3/ul (1.5-7.7); Eosinophil % 0.6 %; Lymphocyte % 3.2 %; Nucleated Red Blood Cells % 0.5
[2021-08-11 06:23] LABS: Calcium 8.6 mg/dL (8.6-10.3); Potassium 3.2 mmol/L (3.5-5.0); eGFR CKD-EPI 70.2 (>60)
[2021-08-11] MEDS: fentaNYL Patch Check Q Shift NOTE FOLLOW UP SCH ×2 (07:09→17:07)
[2021-08-11] MEDS: Pentoxifylline CR 400 mg TAB 400 MG PO SCH ×2 (10:11→21:48)
[2021-08-11] MEDS: Benzocaine (DENTAL) 10% TOP.GEL TOPICAL SCH ×2 (10:14→21:49)
[2021-08-11] MEDS: Polyethylene Glycol 3350 17 GM PACKET PO SCH ×2 (10:14→21:50)
[2021-08-11] MEDS ORDERED: Potassium Chloride LIQUID 20 MEQ/15 ML LIQUID PO ONE (13:49)
[2021-08-11] MEDS: Enoxaparin 40 MG/0.4 ML SYR SUBCUT SCH (21:49)
[2021-08-11] MEDS: Senna TAB 8.6 mg TAB PO SCH (21:50)
[2021-08-11] MEDS: D5W NS 0.9% 20Meq KCL 1000 ml 1,000 ML IV SCH (22:20)
[2021-08-12] MEDS: fentaNYL Patch Check Q Shift NOTE FOLLOW UP SCH ×2 (07:23→19:36)
[2021-08-12] MEDS: Polyethylene Glycol 3350 17 GM PACKET PO SCH ×2 (09:05→20:32)
[2021-08-12] MEDS: Pentoxifylline CR 400 mg TAB 400 MG PO SCH ×3 (09:06→20:14)
[2021-08-12] MEDS: Benzocaine (DENTAL) 10% TOP.GEL TOPICAL SCH ×2 (09:07→20:32)
[2021-08-12] MEDS: D5W NS 0.9% 20Meq KCL 1000 ml 1,000 ML IV SCH (14:15)
[2021-08-12] MEDS: Enoxaparin 40 MG/0.4 ML SYR SUBCUT SCH (20:24)
[2021-08-12] MEDS: Senna TAB 8.6 mg TAB PO SCH (20:32)
[2021-08-13 06:16] LABS: Hematocrit 22 % (42-52); Hemoglobin 7.5 g/dL (14.0-18.0); Mean Corpuscular HGB Conc 34 g/dL (31-36); Mean Corpuscular Hemoglobin 31 pg (27-31); Mean Corpuscular Volume 92 fL (80-94); Mean Platelet Volume 7.8 fL (7.4-10.4); Platelet Count 181 10^3/uL (150-450); Red Blood Count 2.39 10^6 /uL (4.18-5.48); Red Cell Distribution Width 21 % (10-15); White Blood Count 5.2 10^3/uL (3.5-10.8)
[2021-08-13 06:49] LABS: Calcium 8.2 mg/dL (8.6-10.3); Potassium 3.6 mmol/L (3.5-5.0); eGFR CKD-EPI 90.1 (>60)
[2021-08-13] MEDS: fentaNYL Patch Check Q Shift NOTE FOLLOW UP SCH ×2 (06:57→20:50)
[2021-08-13 07:46] LABS: ABS Lymphocytes 0.2 10^3/ul (1.0-4.8); ABS Monocytes 0.4 10^3/ul (0-0.8); ABS Neutrophils 4.6 10^3/ul (1.5-7.7); Eosinophil % 0.5 %; Lymphocyte % 3.1 %; Nucleated Red Blood Cells % 0.3
[2021-08-13] MEDS: fentaNYL PATCH 100 MCG/HR 1 PATCH TRANSDERM SCH (09:39)
[2021-08-13] MEDS: Pentoxifylline CR 400 mg TAB 400 MG PO SCH ×2 (09:46→20:44)
[2021-08-13] MEDS: Polyethylene Glycol 3350 17 GM PACKET PO SCH ×2 (09:46→20:48)
[2021-08-13] MEDS: Benzocaine (DENTAL) 10% TOP.GEL TOPICAL SCH ×2 (09:47→20:53)
[2021-08-13] MEDS: Enoxaparin 40 MG/0.4 ML SYR SUBCUT SCH (20:51)
[2021-08-13] MEDS: Senna TAB 8.6 mg TAB PO SCH (20:54)
[2021-08-14] MEDS: fentaNYL Patch Check Q Shift NOTE FOLLOW UP SCH ×2 (06:54→19:38)
[2021-08-14] MEDS: Polyethylene Glycol 3350 17 GM PACKET PO SCH ×2 (09:24→21:02)
[2021-08-14] MEDS: Pentoxifylline CR 400 mg TAB 400 MG PO SCH ×2 (09:25→21:00)
[2021-08-14] MEDS: Benzocaine (DENTAL) 10% TOP.GEL TOPICAL SCH ×2 (09:26→21:10)
[2021-08-14 11:41] LABS: Calcium (PTH Intact) 8.8 mg/dL (8.6-10.3)
[2021-08-14] MEDS: Senna TAB 8.6 mg TAB PO SCH (21:01)
[2021-08-14] MEDS: Enoxaparin 40 MG/0.4 ML SYR SUBCUT SCH (21:11)
[2021-08-15] MEDS: fentaNYL Patch Check Q Shift NOTE FOLLOW UP SCH (07:08)
[2021-08-15] MEDS: Polyethylene Glycol 3350 17 GM PACKET PO SCH (08:32)
[2021-08-15] MEDS: Pentoxifylline CR 400 mg TAB 400 MG PO SCH (08:35)
[2021-08-15] MEDS: Benzocaine (DENTAL) 10% TOP.GEL TOPICAL SCH (08:36)
[2021-08-15] MEDS ORDERED: fentaNYL PATCH 100 MCG/HR 1 PATCH TRANSDERM SCH (10:00)
[2021-08-15 12:38] LABS: Ferritin 1238.8 ng/mL (24-336)
[2021-08-15 15:23] VITALS: BP 106/53
[2021-08-15] MEDS ORDERED: Benzocaine (DENTAL) 10% TOP.GEL TOPICAL PRN (16:17)
[2021-08-15] MEDS ORDERED: Enoxaparin 40 MG/0.4 ML SYR SUBCUT SCH (17:00)
[2021-08-15] MEDS ORDERED: FENTANYL FOLLOW UP SCH (19:00)
[2021-08-15] MEDS ORDERED: Pentoxifylline CR 400 mg TAB 400 MG PO SCH (21:00)
[2021-08-15] MEDS ORDERED: Polyethylene Glycol 3350 17 GM PACKET PO SCH (21:00)
[2021-08-15] MEDS ORDERED: Senna TAB 8.6 mg TAB PO SCH (21:00)
[2021-08-16] MEDS ORDERED: Cholecalciferol (VIT D3) 1,000 unit TAB PO SCH (09:00)
== END 2021-08-15 15:59 | disposition short-term general hospital (02) | DRG 560 ==
LOC: PMRU 15:42
PROVIDERS: ADMIT Physical Medicine & Rehabilitation; ATTEND Physical Medicine & Rehabilitation

== ENCOUNTER 2021-08-15 13:02 | Inpatient (IN) ==
[2021-08-15] MEDS ORDERED: VINCRISTINE IVPB ONE (17:00)
[2021-08-15] MEDS ORDERED: DOXORUBICIN IVPB ONE (17:00)
[2021-08-15] MEDS ORDERED: NS 0.9% IVPB ONE (17:00)
[2021-08-15] MEDS ORDERED: Palonosetron 0.25 MG in Premix IV 0 ML IVPB ONE (17:00)
[2021-08-15] MEDS: fentaNYL PATCH 100 MCG/HR 1 PATCH TRANSDERM SCH (17:23)
[2021-08-15] MEDS: Enoxaparin 40 MG/0.4 ML SYR SUBCUT SCH (17:26)
[2021-08-15] MEDS: fentaNYL Patch Check Q Shift NOTE FOLLOW UP SCH (18:55)
[2021-08-15] MEDS: Pentoxifylline CR 400 mg TAB 400 MG PO SCH ×2 (19:38→20:47)
[2021-08-15] MEDS: Polyethylene Glycol 3350 17 GM PACKET PO SCH (19:38)
[2021-08-15] MEDS: Senna TAB 8.6 mg TAB PO SCH (19:38)
[2021-08-16] MEDS: fentaNYL Patch Check Q Shift NOTE FOLLOW UP SCH ×2 (07:40→18:46)
[2021-08-16] MEDS: Polyethylene Glycol 3350 17 GM PACKET PO SCH ×2 (09:38→20:03)
[2021-08-16] MEDS: Cholecalciferol (VIT D3) 1,000 unit TAB PO SCH (09:39)
[2021-08-16] MEDS: Pentoxifylline CR 400 mg TAB 400 MG PO SCH ×2 (09:40→20:01)
[2021-08-16 13:32] LABS: Calcium 8.5 mg/dL (8.6-10.3); Magnesium 2.3 mg/dL (1.9-2.7); Potassium 4.6 mmol/L (3.5-5.0); eGFR CKD-EPI 83.5 (>60)
[2021-08-16] MEDS: NS 0.9% IVPB SCH (15:44)
[2021-08-16] MEDS: DOXORUBICIN IVPB SCH (15:44)
[2021-08-16] MEDS: VINCRISTINE IVPB SCH (15:44)
[2021-08-16] MEDS: Enoxaparin 40 MG/0.4 ML SYR SUBCUT SCH (17:06)
[2021-08-16] MEDS: Senna TAB 8.6 mg TAB PO SCH (20:04)
[2021-08-17 05:40] LABS: Hematocrit 24 % (42-52); Mean Corpuscular HGB Conc 34 g/dL (31-36); Mean Corpuscular Hemoglobin 32 pg (27-31); Mean Corpuscular Volume 94 fL (80-94); Mean Platelet Volume 7.1 fL (7.4-10.4); Platelet Count 215 10^3/uL (150-450); Red Blood Count 2.54 10^6 /uL (4.18-5.48); Red Cell Distribution Width 21 % (10-15); White Blood Count 7.6 10^3/uL (3.5-10.8)
[2021-08-17 07:10] LABS: ABS Lymphocytes 0.2 10^3/ul (1.0-4.8); ABS Monocytes 0.2 10^3/ul (0-0.8); ABS Neutrophils 7.2 10^3/ul (1.5-7.7); Lymphocyte % 2.1 %; Nucleated Red Blood Cells % 0.1
[2021-08-17 07:13] LABS: Albumin 2.9 g/dL (3.2-5.2)
[2021-08-17] MEDS: fentaNYL Patch Check Q Shift NOTE FOLLOW UP SCH ×2 (07:13→18:42)
[2021-08-17 07:19] LABS: Albumin/Globulin Ratio 0.9 (1-3); Calcium 8.4 mg/dL (8.6-10.3); Globulin 3.4 g/dL (2-4); Total Bilirubin 0.2 mg/dL (0.2-1.0); Total Protein 6.3 g/dL (6.4-8.9)
[2021-08-17 07:22] LABS: eGFR CKD-EPI 88.9 (>60)
[2021-08-17] MEDS: Polyethylene Glycol 3350 17 GM PACKET PO SCH ×2 (09:29→20:24)
[2021-08-17] MEDS: Cholecalciferol (VIT D3) 1,000 unit TAB PO SCH (09:30)
[2021-08-17] MEDS: Pentoxifylline CR 400 mg TAB 400 MG PO SCH ×2 (09:33→20:24)
[2021-08-17] MEDS: DOXORUBICIN IVPB SCH (15:43)
[2021-08-17] MEDS: NS 0.9% IVPB SCH (15:43)
[2021-08-17] MEDS: VINCRISTINE IVPB SCH (15:43)
[2021-08-17] MEDS: Enoxaparin 40 MG/0.4 ML SYR SUBCUT SCH (16:36)
[2021-08-17] MEDS: Senna TAB 8.6 mg TAB PO SCH (20:23)
[2021-08-18 04:57] LABS: Hematocrit 25 % (42-52); Hemoglobin 8.3 g/dL (14.0-18.0); Mean Corpuscular HGB Conc 34 g/dL (31-36); Mean Corpuscular Hemoglobin 31 pg (27-31); Mean Corpuscular Volume 93 fL (80-94); Mean Platelet Volume 7.3 fL (7.4-10.4); Platelet Count 224 10^3/uL (150-450); Red Blood Count 2.66 10^6 /uL (4.18-5.48); Red Cell Distribution Width 21 % (10-15)
[2021-08-18 05:03] LABS: ABS Lymphocytes 0.1 10^3/ul (1.0-4.8); ABS Monocytes 0.2 10^3/ul (0-0.8); ABS Neutrophils 6.6 10^3/ul (1.5-7.7); Lymphocyte % 2.1 %; Nucleated Red Blood Cells % 0.1
[2021-08-18 05:23] LABS: Calcium 8.7 mg/dL (8.6-10.3); Phosphorus 3.3 mg/dL (2.5-5.0); Potassium 4.7 mmol/L (3.5-5.0); Uric Acid 7.5 mg/dL (4.4-7.6); eGFR CKD-EPI 91.9 (>60)
[2021-08-18] MEDS: fentaNYL Patch Check Q Shift NOTE FOLLOW UP SCH ×2 (07:26→18:54)
[2021-08-18] MEDS: Polyethylene Glycol 3350 17 GM PACKET PO SCH ×2 (08:43→21:40)
[2021-08-18] MEDS: Cholecalciferol (VIT D3) 1,000 unit TAB PO SCH (08:45)
[2021-08-18] MEDS: Pentoxifylline CR 400 mg TAB 400 MG PO SCH ×2 (08:47→21:42)
[2021-08-18] MEDS: DICLOFENAC 1% TOPICAL PRN (09:01)
[2021-08-18] MEDS: VINCRISTINE IVPB SCH (16:40)
[2021-08-18] MEDS: NS 0.9% IVPB SCH (16:40)
[2021-08-18] MEDS: DOXORUBICIN IVPB SCH (16:40)
[2021-08-18] MEDS: fentaNYL PATCH 100 MCG/HR 1 PATCH TRANSDERM SCH (17:37)
[2021-08-18] MEDS: Enoxaparin 40 MG/0.4 ML SYR SUBCUT SCH (17:41)
[2021-08-18] MEDS: Senna TAB 8.6 mg TAB PO SCH (21:42)
[2021-08-19] MEDS: fentaNYL Patch Check Q Shift NOTE FOLLOW UP SCH ×2 (07:03→19:29)
[2021-08-19] MEDS: Cholecalciferol (VIT D3) 1,000 unit TAB PO SCH (08:35)
[2021-08-19] MEDS: Pentoxifylline CR 400 mg TAB 400 MG PO SCH ×2 (08:36→20:28)
[2021-08-19] MEDS: DICLOFENAC 1% TOPICAL PRN ×2 (08:38→20:46)
[2021-08-19] MEDS: Polyethylene Glycol 3350 17 GM PACKET PO SCH ×2 (08:39→20:28)
[2021-08-19 14:50] LABS: ABS Lymphocytes 0.2 10^3/ul (1.0-4.8); Hematocrit 26 % (42-52); Hemoglobin 8.4 g/dL (14.0-18.0); Lymphocyte % 2.4 %; Mean Corpuscular HGB Conc 33 g/dL (31-36); Mean Corpuscular Hemoglobin 31 pg (27-31); Mean Corpuscular Volume 93 fL (80-94); Mean Platelet Volume 7.1 fL (7.4-10.4); Nucleated Red Blood Cells % 0.1; Platelet Count 246 10^3/uL (150-450); Red Blood Count 2.77 10^6 /uL (4.18-5.48); Red Cell Distribution Width 20 % (10-15); White Blood Count 8.2 10^3/uL (3.5-10.8)
[2021-08-19 15:19] LABS: Calcium 8.3 mg/dL (8.6-10.3); Potassium 4.1 mmol/L (3.5-5.0); eGFR CKD-EPI 93.9 (>60)
[2021-08-19] MEDS: Enoxaparin 40 MG/0.4 ML SYR SUBCUT SCH (16:18)
[2021-08-19] MEDS: Senna TAB 8.6 mg TAB PO SCH (20:28)
[2021-08-20 05:58] LABS: ABS Lymphocytes 0.2 10^3/ul (1.0-4.8); ABS Monocytes 0.7 10^3/ul (0-0.8); ABS Neutrophils 6.5 10^3/ul (1.5-7.7); Eosinophil % 0.1 %; Hematocrit 25 % (42-52); Hemoglobin 8.2 g/dL (14.0-18.0); Lymphocyte % 3.2 %; Mean Corpuscular HGB Conc 33 g/dL (31-36); Mean Corpuscular Hemoglobin 31 pg (27-31); Mean Corpuscular Volume 93 fL (80-94); Mean Platelet Volume 7.2 fL (7.4-10.4); Platelet Count 232 10^3/uL (150-450); Red Blood Count 2.69 10^6 /uL (4.18-5.48); Red Cell Distribution Width 21 % (10-15); White Blood Count 7.4 10^3/uL (3.5-10.8)
[2021-08-20 06:22] LABS: Magnesium 2.1 mg/dL (1.9-2.7); Potassium 4.2 mmol/L (3.5-5.0); eGFR CKD-EPI 93.2 (>60)
[2021-08-20 06:42] LABS: Calcium 8.4 mg/dL (8.6-10.3)
[2021-08-20] MEDS: fentaNYL Patch Check Q Shift NOTE FOLLOW UP SCH ×2 (07:01→19:20)
[2021-08-20] MEDS: Polyethylene Glycol 3350 17 GM PACKET PO SCH ×2 (08:11→20:44)
[2021-08-20] MEDS: Pentoxifylline CR 400 mg TAB 400 MG PO SCH ×2 (08:12→20:46)
[2021-08-20] MEDS: Cholecalciferol (VIT D3) 1,000 unit TAB PO SCH (08:12)
[2021-08-20] MEDS: Enoxaparin 40 MG/0.4 ML SYR SUBCUT SCH (18:17)
[2021-08-20] MEDS ORDERED: Metoprolol Tartrate 5 mg VIAL 5 ml VIAL (1 mg/ml) IV ONE (18:35)
[2021-08-20] MEDS ORDERED: Filgrastim* 480 MCG VIAL (AUTOSUB = ZARXIO*) SUBCUT SCH (20:00)
[2021-08-20] MEDS: Senna TAB 8.6 mg TAB PO SCH (20:46)
[2021-08-21 06:00] LABS: ABS Lymphocytes 0.3 10^3/ul (1.0-4.8); ABS Monocytes 0.6 10^3/ul (0-0.8); ABS Neutrophils 15.6 10^3/ul (1.5-7.7); Eosinophil % 0.1 %; Hematocrit 25 % (42-52); Hemoglobin 8.1 g/dL (14.0-18.0); Lymphocyte % 1.7 %; Mean Corpuscular HGB Conc 32 g/dL (31-36); Mean Corpuscular Hemoglobin 30 pg (27-31); Mean Corpuscular Volume 94 fL (80-94); Mean Platelet Volume 7.5 fL (7.4-10.4); Platelet Count 236 10^3/uL (150-450); Red Blood Count 2.68 10^6 /uL (4.18-5.48); Red Cell Distribution Width 21 % (10-15); White Blood Count 16.5 10^3/uL (3.5-10.8)
[2021-08-21 06:40] LABS: Calcium 8.7 mg/dL (8.6-10.3); Magnesium 2.1 mg/dL (1.9-2.7); Potassium 4.3 mmol/L (3.5-5.0); eGFR CKD-EPI 94.6 (>60)
[2021-08-21] MEDS: fentaNYL Patch Check Q Shift NOTE FOLLOW UP SCH ×2 (07:18→19:21)
[2021-08-21] MEDS: Pentoxifylline CR 400 mg TAB 400 MG PO SCH ×2 (07:46→20:43)
[2021-08-21] MEDS: Polyethylene Glycol 3350 17 GM PACKET PO SCH ×2 (07:47→20:43)
[2021-08-21] MEDS: Cholecalciferol (VIT D3) 1,000 unit TAB PO SCH (07:47)
[2021-08-21] MEDS ORDERED: Metoprolol Tartrate 5 mg VIAL 5 ml VIAL (1 mg/ml) IV ONE (16:25)
[2021-08-21] MEDS ORDERED: Metoprolol Tartrate 5 mg VIAL 5 ml VIAL (1 mg/ml) ONE (16:29)
[2021-08-21] MEDS: fentaNYL PATCH 100 MCG/HR 1 PATCH TRANSDERM SCH (16:38)
[2021-08-21] MEDS: Enoxaparin 40 MG/0.4 ML SYR SUBCUT SCH (16:42)
[2021-08-21] MEDS: Senna TAB 8.6 mg TAB PO SCH (20:43)
[2021-08-22] MEDS: DICLOFENAC 1% TOPICAL PRN (05:36)
[2021-08-22 06:42] LABS: Hematocrit 25 % (42-52); Hemoglobin 8.1 g/dL (14.0-18.0); Mean Corpuscular HGB Conc 33 g/dL (31-36); Mean Corpuscular Hemoglobin 31 pg (27-31); Mean Corpuscular Volume 95 fL (80-94); Mean Platelet Volume 7.5 fL (7.4-10.4); Platelet Count 236 10^3/uL (150-450); Red Blood Count 2.61 10^6 /uL (4.18-5.48); Red Cell Distribution Width 21 % (10-15); White Blood Count 25.3 10^3/uL (3.5-10.8)
[2021-08-22 07:12] LABS: Albumin 3.2 g/dL (3.2-5.2); Albumin/Globulin Ratio 0.9 (1-3); Calcium 9.1 mg/dL (8.6-10.3); Globulin 3.6 g/dL (2-4); Magnesium 2.1 mg/dL (1.9-2.7); Potassium 4.3 mmol/L (3.5-5.0); Total Bilirubin 0.3 mg/dL (0.2-1.0); Total Protein 6.8 g/dL (6.4-8.9); eGFR CKD-EPI 96.5 (>60)
[2021-08-22] MEDS: fentaNYL Patch Check Q Shift NOTE FOLLOW UP SCH ×2 (07:27→19:08)
[2021-08-22 09:07] LABS: ABS Basophils 0.1 10^3/ul (0-0.2); ABS Lymphocytes 0.3 10^3/ul (1.0-4.8); ABS Monocytes 0.6 10^3/ul (0-0.8); ABS Neutrophils 24.3 10^3/ul (1.5-7.7); ABS Nucleated RBC 0.1 10^3/ul; Eosinophil % 0.1 %; Lymphocyte % 1.1 %; Nucleated Red Blood Cells % 0.3
[2021-08-22] MEDS: Polyethylene Glycol 3350 17 GM PACKET PO SCH ×2 (10:10→19:48)
[2021-08-22] MEDS: Cholecalciferol (VIT D3) 1,000 unit TAB PO SCH (10:18)
[2021-08-22] MEDS: Pentoxifylline CR 400 mg TAB 400 MG PO SCH ×2 (10:18→22:28)
[2021-08-22] MEDS: Enoxaparin 40 MG/0.4 ML SYR SUBCUT SCH (19:21)
[2021-08-22] MEDS: Senna TAB 8.6 mg TAB PO SCH (19:48)
[2021-08-23] MEDS: DICLOFENAC 1% TOPICAL PRN (04:34)
[2021-08-23] MEDS: fentaNYL Patch Check Q Shift NOTE FOLLOW UP SCH ×2 (07:11→19:30)
[2021-08-23] MEDS: Polyethylene Glycol 3350 17 GM PACKET PO SCH ×2 (08:03→20:28)
[2021-08-23] MEDS: Pentoxifylline CR 400 mg TAB 400 MG PO SCH ×2 (08:28→20:50)
[2021-08-23] MEDS: Cholecalciferol (VIT D3) 1,000 unit TAB PO SCH (08:28)
[2021-08-23] MEDS ORDERED: fentaNYL PATCH 25 MCG/HR 1 PATCH TRANSDERM SCH (11:00)
[2021-08-23] MEDS ORDERED: fentaNYL PATCH 100 MCG/HR 1 PATCH TRANSDERM SCH (11:00)
[2021-08-23] MEDS: Enoxaparin 40 MG/0.4 ML SYR SUBCUT SCH ×2 (18:45→20:46)
[2021-08-23] MEDS: Senna TAB 8.6 mg TAB PO SCH (20:56)
[2021-08-23 21:14] LABS: Hematocrit 24 % (42-52); Hemoglobin 7.8 g/dL (14.0-18.0); Mean Corpuscular HGB Conc 32 g/dL (31-36); Mean Corpuscular Hemoglobin 30 pg (27-31); Mean Corpuscular Volume 94 fL (80-94); Mean Platelet Volume 7.5 fL (7.4-10.4); Platelet Count 270 10^3/uL (150-450); Red Cell Distribution Width 21 % (10-15); White Blood Count 19.5 10^3/uL (3.5-10.8)
[2021-08-23 21:24] LABS: ABS Basophils 0.1 10^3/ul (0-0.2); ABS Eosinophils 0.1 10^3/ul (0-0.6); ABS Lymphocytes 0.3 10^3/ul (1.0-4.8); ABS Monocytes 0.5 10^3/ul (0-0.8); ABS Neutrophils 18.6 10^3/ul (1.5-7.7); Eosinophil % 0.3 %; Lymphocyte % 1.6 %; Nucleated Red Blood Cells % 0.1
[2021-08-23 21:37] LABS: Albumin 3.1 g/dL (3.2-5.2); Albumin/Globulin Ratio 0.9 (1-3); Calcium 10.2 mg/dL (8.6-10.3); Globulin 3.6 g/dL (2-4); Potassium 4.4 mmol/L (3.5-5.0); Total Bilirubin 0.2 mg/dL (0.2-1.0); Total Protein 6.7 g/dL (6.4-8.9); eGFR CKD-EPI 94.3 (>60)
[2021-08-24] MEDS: fentaNYL Patch Check Q Shift NOTE FOLLOW UP SCH ×2 (06:44→19:25)
[2021-08-24 07:03] LABS: ABS Eosinophils 0.1 10^3/ul (0-0.6); ABS Lymphocytes 0.3 10^3/ul (1.0-4.8); ABS Monocytes 0.7 10^3/ul (0-0.8); ABS Neutrophils 18.5 10^3/ul (1.5-7.7); Eosinophil % 0.3 %; Hematocrit 24 % (42-52); Hemoglobin 7.9 g/dL (14.0-18.0); Lymphocyte % 1.5 %; Mean Corpuscular HGB Conc 33 g/dL (31-36); Mean Corpuscular Hemoglobin 31 pg (27-31); Mean Corpuscular Volume 94 fL (80-94); Mean Platelet Volume 7.4 fL (7.4-10.4); Platelet Count 266 10^3/uL (150-450); Red Blood Count 2.57 10^6 /uL (4.18-5.48); Red Cell Distribution Width 21 % (10-15); White Blood Count 19.6 10^3/uL (3.5-10.8)
[2021-08-24 07:36] LABS: Calcium 10.3 mg/dL (8.6-10.3); Magnesium 2.1 mg/dL (1.9-2.7); Potassium 4.5 mmol/L (3.5-5.0); eGFR CKD-EPI 91.3 (>60)
[2021-08-24] MEDS: Polyethylene Glycol 3350 17 GM PACKET PO SCH ×2 (11:19→19:51)
[2021-08-24] MEDS: Cholecalciferol (VIT D3) 1,000 unit TAB PO SCH (11:19)
[2021-08-24] MEDS: Pentoxifylline CR 400 mg TAB 400 MG PO SCH ×2 (11:20→19:51)
[2021-08-24 12:03] VITALS: BP 90/41
[2021-08-24] MEDS: Morphine ORAL CONCENTRATE 5 MG/0.25 ML ORAL.SYRIN PO PRN ×2 (12:30→15:25)
[2021-08-24] MEDS: Enoxaparin 40 MG/0.4 ML SYR SUBCUT SCH (19:49)
[2021-08-24] MEDS: Senna TAB 8.6 mg TAB PO SCH (19:51)
[2021-08-24] MEDS: Al Hydrox/Mg Hydrox/Simet LIQ 30 ML UDC PO PRN (22:03)
[2021-08-25] MEDS: Morphine ORAL CONCENTRATE 5 MG/0.25 ML ORAL.SYRIN PO PRN ×3 (00:02→13:36)
[2021-08-25] MEDS: fentaNYL Patch Check Q Shift NOTE FOLLOW UP SCH (06:59)
[2021-08-25] MEDS: Cholecalciferol (VIT D3) 1,000 unit TAB PO SCH (09:34)
[2021-08-25] MEDS: Pentoxifylline CR 400 mg TAB 400 MG PO SCH (09:34)
[2021-08-25] MEDS: Polyethylene Glycol 3350 17 GM PACKET PO SCH (09:34)
[2021-08-25] MEDS: Al Hydrox/Mg Hydrox/Simet LIQ 30 ML UDC PO PRN (10:45)
== END 2021-08-25 14:40 | disposition home or self-care (01) | DRG 841 ==
LOC: MED 16:14
PROVIDERS: ADMIT Internal Medicine Hematology & Oncology; ATTEND Internal Medicine Hematology & Oncology

== ENCOUNTER 2021-08-29 07:46 | Inpatient (IN) ==
[2021-08-29] MEDS ORDERED: Lactated Ringers 1000 ml BAG 1,000 ML IV ONE (08:02)
[2021-08-29 08:38] LABS: Hematocrit 31 % (42-52); Hemoglobin 10.5 g/dL (14.0-18.0); Mean Corpuscular HGB Conc 34 g/dL (31-36); Mean Corpuscular Hemoglobin 32 pg (27-31); Mean Corpuscular Volume 93 fL (80-94); Mean Platelet Volume 7.5 fL (7.4-10.4); Platelet Count 295 10^3/uL (150-450); Red Blood Count 3.31 10^6 /uL (4.18-5.48); Red Cell Distribution Width 21 % (10-15); White Blood Count 5.3 10^3/uL (3.5-10.8)
[2021-08-29 08:51] LABS: ABS Lymphocytes 0.2 10^3/ul (1.0-4.8); ABS Monocytes 0.4 10^3/ul (0-0.8); ABS Neutrophils 4.6 10^3/ul (1.5-7.7); Eosinophil % 0.2 %; Lymphocyte % 4.6 %; Nucleated Red Blood Cells % 0.1
[2021-08-29] MEDS ORDERED: Metoprolol Tartrate 5 mg VIAL 5 ml VIAL (1 mg/ml) IV ONE ×2 (08:59→09:33)
[2021-08-29 09:35] LABS: Albumin 3.9 g/dL (3.2-5.2); Albumin/Globulin Ratio 0.9 (1-3); Calcium 11.6 mg/dL (8.6-10.3); Globulin 4.4 g/dL (2-4); Potassium 4.5 mmol/L (3.5-5.0); Total Bilirubin 0.5 mg/dL (0.2-1.0); Total Protein 8.3 g/dL (6.4-8.9); eGFR CKD-EPI 70.2 (>60)
[2021-08-29] MEDS ORDERED: Benzocaine (DENTAL) 10% TOP.GEL TOPICAL PRN (12:24)
[2021-08-29] MEDS ORDERED: fentaNYL PATCH 100 MCG/HR 1 PATCH TRANSDERM SCH (13:00)
[2021-08-29] MEDS ORDERED: fentaNYL PATCH 25 MCG/HR 1 PATCH TRANSDERM SCH (13:00)
[2021-08-29] MEDS: fentaNYL Patch Check Q Shift NOTE FOLLOW UP SCH (19:05)
[2021-08-29] MEDS ORDERED: Al Hydrox/Mg Hydrox/Simet LIQ 30 ML UDC PO PRN (19:34)
[2021-08-29] MEDS: Pentoxifylline CR 400 mg TAB 400 MG PO SCH (19:52)
[2021-08-30] MEDS: Morphine ORAL.SOLN 10 mg 2 mg/ml UDC 5 ml (10 mg) PO PRN ×2 (06:01→09:17)
[2021-08-30] MEDS: fentaNYL Patch Check Q Shift NOTE FOLLOW UP SCH (07:30)
[2021-08-30] MEDS: Pentoxifylline CR 400 mg TAB 400 MG PO SCH ×3 (09:16→22:53)
[2021-08-30] MEDS: Morphine ER 100 mg TAB **extended release PO SCH ×2 (10:59→22:52)
[2021-08-31] MEDS: Morphine ORAL.SOLN 10 mg 2 mg/ml UDC 5 ml (10 mg) PO PRN (06:01)
[2021-08-31] MEDS: Morphine ER 100 mg TAB **extended release PO SCH ×2 (09:32→22:15)
[2021-08-31] MEDS: Pentoxifylline CR 400 mg TAB 400 MG PO SCH ×2 (09:39→22:15)
[2021-09-01] MEDS: Morphine ORAL.SOLN 10 mg 2 mg/ml UDC 5 ml (10 mg) PO PRN ×2 (04:35→09:44)
[2021-09-01] MEDS: Pentoxifylline CR 400 mg TAB 400 MG PO SCH ×2 (09:44→21:27)
[2021-09-01] MEDS: Morphine ER 100 mg TAB **extended release PO SCH ×2 (09:44→21:26)
[2021-09-02] MEDS: Pentoxifylline CR 400 mg TAB 400 MG PO SCH ×2 (10:31→21:07)
[2021-09-02] MEDS: Morphine ER 100 mg TAB **extended release PO SCH ×2 (10:31→21:06)
[2021-09-03] MEDS: Morphine ER 100 mg TAB **extended release PO SCH ×2 (09:22→22:02)
[2021-09-03] MEDS: Pentoxifylline CR 400 mg TAB 400 MG PO SCH (09:22)
[2021-09-03] MEDS: Morphine ORAL.SOLN 10 mg 2 mg/ml UDC 5 ml (10 mg) PO PRN ×2 (11:59→16:22)
[2021-09-04 07:35] VITALS: BP 132/72
[2021-09-04] MEDS: Morphine ER 100 mg TAB **extended release PO SCH ×2 (09:16→21:19)
[2021-09-04] MEDS: Morphine ORAL.SOLN 10 mg 2 mg/ml UDC 5 ml (10 mg) PO PRN ×4 (13:07→21:39)
[2021-09-05] MEDS: Morphine ORAL.SOLN 10 mg 2 mg/ml UDC 5 ml (10 mg) PO PRN ×3 (02:17→09:08)
[2021-09-05] MEDS ORDERED: LORazepam 2 mg VIAL 1 ml IV PUSH PRN (09:58)
[2021-09-05] MEDS ORDERED: Morphine ORAL CONCENTRATE 5 MG/0.25 ML ORAL.SYRIN PO PRN (09:58)
[2021-09-05] MEDS ORDERED: Atropine 1% (ORAL/SL) 15 ML BTL SL PRN (09:58)
[2021-09-05] MEDS ORDERED: Lorazepam PYXIS KEY PRN (10:19)
[2021-09-05] MEDS: Morphine ER 100 mg TAB **extended release PO SCH (10:42)
[2021-09-05] MEDS: Morphine 2 MG/ML SYRINGE IV PRN ×3 (11:01→15:03)
== END 2021-09-05 15:10 | disposition expired | DRG 841 ==
LOC: ED 07:46 → EDHOLD 12:06 → MED 16:00
PROVIDERS: ADMIT Internal Medicine Hematology & Oncology; ATTEND Internal Medicine Hematology & Oncology